=== PATIENT | male | born 1940 | race Caucasian/White ===

== ENCOUNTER 2019-06-09 11:25 | Inpatient (IN) ==
[2019-06-09 12:49] LABS: Basophils # (auto) 0.02 K/uL (0-0.2); Basophils % (auto) 0.2 %; Eosinophils # (auto) 0.18 K/uL (0-0.5); Eosinophils % (auto) 2.2 %; Hematocrit (blood only) 31.9 % (42-52); Hemoglobin 11.1 g/dL (14.0-18.0); Immature Granulocytes # (auto) 0.02 K/uL (0.00-0.02); Immature Granulocytes % (auto) 0.2 %; Lymphocytes # (auto) 1.52 K/uL (1.2-3.4); Lymphocytes % (auto) 18.3 %; Mean Corpuscular Hemoglobin 30.4 pg (25-34); Mean Corpuscular Hgb Conc 34.8 g/dL (32-36); Mean Corpuscular Volume 87.4 fL (80-100); Mean Platelet Volume 8.5 fL (7.4-10.4); Monocytes # (auto) 0.53 K/uL (0.11-0.59); Monocytes % (auto) 6.4 %; Neutrophils # (auto) 6.03 K/uL (1.4-6.5); Neutrophils % (auto) 72.7 %; Platelet Count 174 K/uL (130-400); RDW Coefficient of Variation 13.1 % (11.5-14.5); RDW Standard Deviation 41.9 fL (36.4-46.3); Red Blood Count 3.65 M/uL (4.7-6.1)
[2019-06-09 13:00] LABS: Partial Thromboplastin Ratio 0.9; Partial Thromboplastin Time 23.9 Seconds (21.0-31.0); Prothrombin Time 10.3 Seconds (9.0-12.0)
[2019-06-09 13:05] LABS: Albumin Level 3.5 gm/dl (3.4-5.0); BUN Creatinine Ratio 30.9 (10-20); Calcium 9.1 mg/dl (8.5-10.1); Est GFR (African American) 69.8; Est GFR (Non-African American) 60.2; Potassium 3.9 mmol/L (3.5-5.1)
[2019-06-09 13:07] LABS: Albumin Globulin Ratio 1.1 (0.9-2); Bilirubin,Total 0.4 mg/dl (0.2-1); Globulin 3.2 gm/dl (2.5-4.0); Total Protein 6.7 gm/dl (6.4-8.2)
[2019-06-09] MEDS ORDERED: FAMOTIDINE 20MG/5ML IV PUSH IV STA (13:55)
[2019-06-09] MEDS ORDERED: PANTOprazole 80 MG in DEXTROSE 5% 100 ML IV ONE (14:15)
[2019-06-09] MEDS: PANTOprazole 40 MG in DEXTROSE 5% 100 ML IV SCH ×2 (15:01→19:17)
--- NOTE | 2019-06-09 16:17 | History & Physical Report ---
Date of Service June 09, 2019 Assessment & Plan (1) Upper gastrointestinal bleed: Admit to PCU on telemetry. Vital signs every 4 hours CBC every 6 hours, monitor H&H Plan transfusion with PRBC if Hgb below 8 or symptomatic Consult GI N.p.o. Gentle IV fluid hydration with NSS +20 of potassium DVT prophylaxis SCDs and teds Full code Present on Admission?: Yes (2) CAD (coronary artery disease): Continue home medicine atenolol 25 mg p.o. every morning, atorvastatin 40 mg p.o. every morning, hydrochlorothiazide 25 mg p.o. every morning, lisinopril 20 mg p.o. every morning, potassium chloride 10 mEq p.o. every morning daily. Hold aspirin 81 mg p.o. daily since patient has GI bleed and fecal occult blood positive. Present on Admission?: Yes (3) HTN (hypertension): Continue home medicine as the above Present on Admission?: Yes (4) Anemia: H&H stable at this point. Continue monitoring every 6 hours. Plan transfusion if hemoglobin less than 8 or patient is symptomatic. Present on Admission?: Yes (5) Back pain: Continue Tylenol arthritis as needed Present on Admission?: Yes (6) Hx of heart bypass surgery: As discussed above Present on Admission?: Yes (7) Hx of heart artery stent: As discussed above, continue home medicine Present on Admission?: Yes (8) Melanoma: Patient advised to have periodic whole body examination by department sales manager at least once a year, to prevent reoccurrence. Present on Admission?: Yes History of Present Illness Chief Complaint: Melena Primary Care Provider: NO PCP Decision was made to admit patient Salvador patient is a 78 years old male with past medical history of back pain, upper GI bleed, hypertension, coronary artery disease, melanoma, s/p cholecystectomy, s/p 1 heart stent placement, s/p heart bypass surgery, who presents to the emergency room with a complaint of persistent melena or dark stool for 2 consecutive mornings in the row. The patient stated that he has been having dark black stools for 2 days. He states that his stools have been more loose than normal as well. He noticed that he is on baby aspirin but denies any other blood thinner. Patient states that recently he had a lot of back pain and he was taking Aleve. Patient denies taking Pepto-Bismol. Patient denies fever, chills, chest pain, shortness of breath, abdominal pain, frequency, urgency. Patient denies syncope or near syncope. Labs are reviewed and shows WBCs of 9.08, hemoglobin 11.3, hematocrit 32.3, platelets 176, PT 10.3, INR 1, APTT 23.9, sodium 140, potassium 3.9, chloride 107, carbon dioxide 29, anion gap 4, BUN 36, creatinine 1.70, GFR 60.2, glucose 156, calcium 9.1, AST 18, ALT 40, alkaline phosphatase 114, BNP 77, total protein 6.7, albumin 3.5, globulin 3.2, TSH 2.01. Fecal occult blood positive. CT abdomen and pelvis pending. Decision was made to admit patient to PCU on telemetry for further evaluation and treatment of GI bleeding. Allergies Allergy/AdvReac Type Severity Reaction Status Date / Time morphine Allergy Unknown hallucinati Verified 06/09/19 12:26 ons pravastatin Allergy Unknown muscle Verified 06/09/19 12:26 aches & pains ezetimibe [From Zetia] Allergy Muscle Unverified 06/09/19 12:26 Aches and Pains simvastatin [From Zocor] Allergy Muscle Unverified 06/09/19 12:26 Aches and Pains Home Medications Home Medications Medication Instructions Recorded Confirmed Type acetaminophen [Tylenol Arthritis 1,300 mg PO Q12H PRN 06/09/19 06/09/19 History Pain] aspirin 81 mg PO QAM 06/09/19 06/09/19 History atenolol [Tenormin] 25 mg PO QAM 06/09/19 06/09/19 History atorvastatin [Lipitor] 40 mg PO QAM 06/09/19 06/09/19 History hydrochlorothiazide 25 mg PO QAM 06/09/19 06/09/19 History lisinopril [Zestril] 20 mg PO QAM 06/09/19 06/09/19 History potassium chloride [K-Tab] 10 meq PO QAM 06/09/19 06/09/19 History Past Med/Surg History Medical History Acute urinary retention (Acute) Biliary colic (Acute) CAD (coronary artery disease) (Chronic) HTN (hypertension) (Chronic) Melanoma (Resolved) Surgical History Hx of heart artery stent (Resolved) Hx of heart bypass surgery (Resolved) S/P cholecystectomy (Resolved) Family History Other Family history non-contributory Social History Preferred Language: Turkish Communication Ability: Effective Process Architect Required: No Beliefs That Will Affect Care: None marital status: Current Living Situation: Spouse current occupational status: retired Other Information That Helps Us Care for You: No Feels Safe at Home: Yes Safety Concerns: Feels Safe At This Time Smoking Status: Never smoker Do You Dip or Chew Tobacco: No ; Second Hand Exposure: No ; Tobacco Cessation Education Requested by Patient: No Hx Alcohol Use: No Hx Substance Use: No Review of Systems Review of Systems: All systems reviewed & are unremarkable except as noted in HPI & below Physical Exam Constitutional: WD/WN, vitals as above well developed Eyes: PERRL, conjunctivae normal, anicteric sclerae ENMT: external ear and nose normal, oropharynx normal Neck: trachea midline, no thyromegaly Respiratory: normal respiratory effort, lungs clear to auscultation Cardiovascular: RRR, no murmur, no edema Gastrointestinal (Abdomen): Percussion/Palpation: + abdomen tender and abdomen soft Rectal Exam: + heme positive stool Musculoskeletal: no cyanosis or clubbing, extremities motor strength 5/5 Skin: no rashes, warm and dry Neurologic: patellar DTR's 2+ bilat, sensation intact Psychiatric: A+Ox3, euthymic affect Lymphatic: no cervical or axillary lymphadenopathy Results & Data Vital Signs (Past 12 Hours) Vital Signs Temp Pulse Pulse Resp BP BP Pulse Ox 06/09/19 15:00 62 17 119/59 L 95 06/09/19 14:30 58 L 18 124/67 96 06/09/19 13:30 56 L 17 113/60 94 06/09/19 13:00 58 L 18 110/62 94 06/09/19 11:34 36.8 C 80 18 106/67 96 Code Status & VTE Plan Code Status Full code VTE Prophylaxis Plan VTE Prophylaxis will be ordered: Yes PG Care Time/CCT Total # of Minutes Spent Total Time Spent with Patient: Total time spent is greater than 50% in coordination of care (as documented) at patient's floor/unit and/or counseling p atient: Coding Level of Care Code 87384 Initial Inpt Care Lvl 3 Diagnoses Upper gastrointestinal bleed K92.2 CAD (coronary artery disease) I25.10 HTN (hypertension) I10 Anemia D64.9 Anemia type: unspecified type Back pain M54.9 Hx of heart bypass surgery Z95.1 Hx of heart artery stent Z95.5 Melanoma C43.9 (1) Anemia Anemia type: unspecified type Qualified Code(s): D64.9 - Anemia, unspecified
[2019-06-09] MEDS ORDERED: ONDANSETRON INJ 2 MG/ML 2 ML VIAL IV PRN (16:59)
[2019-06-09] MEDS ORDERED: MAGNESIUM HYDROXIDE SUSP 30 ML UDC PO PRN (16:59)
[2019-06-09] MEDS ORDERED: ALUMINUM/MAGNESIUM SUSP 30 ML UDC PO PRN (16:59)
[2019-06-09] MEDS ORDERED: ACETAMINOPHEN 325 MG TAB PO PRN (16:59)
[2019-06-09 17:26] LABS: Basophils # (auto) 0.03 K/uL (0-0.2); Basophils % (auto) 0.3 %; Eosinophils % (auto) 2.2 %; Hematocrit (blood only) 32.3 % (42-52); Hemoglobin 11.3 g/dL (14.0-18.0); Immature Granulocytes # (auto) 0.03 K/uL (0.00-0.02); Immature Granulocytes % (auto) 0.3 %; Lymphocytes # (auto) 2.07 K/uL (1.2-3.4); Lymphocytes % (auto) 22.8 %; Mean Corpuscular Hemoglobin 30.5 pg (25-34); Mean Corpuscular Volume 87.1 fL (80-100); Mean Platelet Volume 8.6 fL (7.4-10.4); Monocytes # (auto) 0.74 K/uL (0.11-0.59); Monocytes % (auto) 8.1 %; Neutrophils # (auto) 6.01 K/uL (1.4-6.5); Neutrophils % (auto) 66.3 %; Platelet Count 176 K/uL (130-400); RDW Coefficient of Variation 13.1 % (11.5-14.5); RDW Standard Deviation 41.8 fL (36.4-46.3); Red Blood Count 3.71 M/uL (4.7-6.1); White Blood Count 9.08 K/uL (4.8-10.8)
--- NOTE | 2019-06-09 17:37 | Emergency Department Note ---
Entered by Umu White acting as a scribe for ED Provider Note CHIEF COMPLAINT: Rectal Bleed HISTORY OF PRESENT ILLNESS: The patient is a 78 year old male who presents to the Emergency Room with complaints of persistent rectal bleeding starting 2 mornings ago. The patient states that he has been having dark black stools for 2 days. He states that his stools have been more loose than normal as well. He notes that he is on baby as pirin, but denies any other blood thinners. The patient complains of nausea and lightheadedness. The patients notes that he has been taking a lot of Aleve lately for his chronic back pain. The patient denies ever having it before and taking any Pepto Bismol. Pt denies LOC, headache, fevers, chills, diaphoresis, visual changes, neck pain, chest pain, breathing difficulties, vomiting, abdominal pain, hematochezia, urinary symptoms, numbness, weakness, lymphadenopathy, rash, or other complai nts. REVIEW OF SYSTEMS: See HPI for pertinent positives and negatives. A total of ten systems were reviewed and were otherwise negative. PMHx/PSHx: The patient has a history of urinary retention, biliary colic, CAD, HTN, melanoma, heart artery stent, CABG, and cholecystectomy. SOCIAL HISTORY: Patient lives at home with his . He is retired and has never been a smoker. PHYSICAL EXAM: GENERAL: Awake, alert, well-appearing, in no distress HENT: Normocephalic, atraumatic. Oropharynx unremarkable. EYES: PERRL. Normal conjunctiva. Sclera non-icteric. NECK: Inspection normal. Non-tender. Supple. No nuchal rigidity. FROM. No masses. RESPIRATORY: Clear to auscultation. No wheezes. No rales. Normal respiratory effort. CARDIAC: Normal rate. Normal rhythm. No murmurs. No rubs. Extremities warm and well perfused. Pulses equal. No JVD. GI: Soft, non-distended. No tenderness to palpation. No rebound or guarding. No masses. RECTAL: Dark, black stool present. Heme cult positive. MUSCULOSKELETAL: Atraumatic. Chest examination reveals no tenderness. The back is symmetrical on inspection without obvious abnormality. There is no CVA tenderness to palpation. No joint edema. LOWER EXTREMITIES: Calves are equal size bilaterally and non-tender. No edema. No discoloration. NEURO: Normal sensorium. No sensory or motor deficits noted. SKIN: No rash or jaundice noted. EMERGENCY DEPARTMENT COURSE: 1219: The patient was evaluated in room B8, and a complete history and physical examination were performed. 1256: I discussed the patient's case with Dr. Ry NOLAND Hospitalist. She will evaluate the patient for further management. 1257: I reevaluated the patient and updated him on his test results. I discussed the treatment plan with him. He verbally agrees and understands. MEDICAL DECISION MAKING: Prior records/ancillary studies reviewed. Triage Nursing notes reviewed and agree them. Additional history obtained from the family. The patient's history was concerning for possible gastrointestinal bleeding. Differential diagnosis: Etiologies such as diverticulosis, AVM, coagulopathy, colitis, inflammatory bowel disease, malignancy,Xochitl-Wan tear, esophagitis, peptic ulcer disease, variceal bleed, gastritis, epistaxis, fissure, hemorrhoids, as well as others were entertained. Physical exam: As above. ER treatment provided: IV Pepcid IV Protonix bolus and drip ordered by the ED pharmacist. On reassessment the patient felt better. Diagnostics interpreted by me: ECG: Sinus rhythm The labs revealed mild anemia on CBC. BUN elevated on chemistry panel. Imaging studies: CT scan as noted below. Chest x-ray as noted below Consultation: A consultation was placed with the hospitalist. The case was discussed and diagnostics were reviewed. The patient was evaluated in the ER for further treatment. DINING SERVER: Continuous Cardiac Monitoring: An order was placed for continuous cardiac monitoring. The monitor shows a rate of 80 with sinus rhythm. IMPRESSION: Upper GI Bleed, Anemia PLAN: Being Evaluated by a Hospitalist The scribe's documentation has been prepared under my direction and personally reviewed by me in its entirety. I confirm that the note above accurately reflects all work, treatment, procedures, and medical decision making performed by me. Impression & Plan Upper gastrointestinal bleed, Anemia Past Med/Surg History Medical History Acute urinary retention (Acute) Biliary colic (Acute) CAD (coronary artery disease) (Chronic) HTN (hypertension) (Chronic) Melanoma (Resolved) Surgical History Hx of heart artery stent (Resolved) Hx of heart bypass surgery (Resolved) S/P cholecystectomy (Resolved) Family History Other Family history non-contributory Social History Preferred Language: Cape Verdean Communication Ability: Effective Fabrication Engineer Required: No Beliefs That Will Affect Care: None marital status: Current Living Situation: Spouse current occupational status: retired Other Information That Helps Us Care for You: No Feels Safe at Home: Yes Safety Concerns: Feels Safe At This Time Smoking Status: Never smoker Do You Dip or Chew Tobacco: No ; Second Hand Exposure: No ; Tobacco Cessation Education Requested by Patient: No Hx Alcohol Use: No Hx Substance Use: No Results & Data Vital Signs Vital Signs - 24 hr 06/09/19 11:34 06/09/19 13:00 06/09/19 13:30 Temperature 36.8 C Temperature Source Oral Pulse Rate 80 Pulse Rate [Apical] 58 L 56 L Pulse Rate from SpO2 Sensor Pulse Rhythm [Apical] Regular Regular Pulse Strength [Apical] Normal Respiratory Rate 18 18 17 Respiratory Effort / Characteristics Non-Labored Non-Labored Spontaneous Non-Labored Spontaneous Respiratory Depth Normal Normal Normal Respiratory Pattern Regular Regular Blood Pressure 106/67 Blood Pressure [Left Arm] 110/62 113/60 Blood Pressure Mean 80 Blood Pressure Mean [Left Arm] 78 77 Blood Pressure Position Sitting Pulse Oximetry 96 94 94 Oxygen Delivery Method Room Air Room Air Room Air Sepsis Recent Fever Within 48 Hours No Sepsis New/Unexplained Change in Mental Status No Sepsis Action Taken by Nursing No Action Required 06/09/19 14:30 06/09/19 15:00 06/09/19 15:30 Temperature Temperature Source Pulse Rate 62 60 Pulse Rate [Apical] 58 L Pulse Rate from SpO2 Sensor 61 60 Pulse Rhythm [Apical] Regular Pulse Strength [Apical] Respiratory Rate 18 17 18 Respiratory Effort / Characteristics Non-Labored Spontaneous Respiratory Depth Normal Respiratory Pattern Regular Blood Pressure 119/59 L 110/64 Blood Pressure [Left Arm] 124/67 Blood Pressure Mean 71 74 Blood Pressure Mean [Left Arm] 86 Blood Pressure Position Pulse Oximetry 96 95 96 Oxygen Delivery Method Room Air Sepsis Recent Fever Within 48 Hours Sepsis New/Unexplained Change in Mental Status Sepsis Action Taken by Nursing 06/09/19 16:00 Temperature Temperature Source Pulse Rate 57 L Pulse Rate [Apical] Pulse Rate from SpO2 Sensor 57 L Pulse Rhythm [Apical] Pulse Strength [Apical] Respiratory Rate 18 Respiratory Effort / Characteristics Respiratory Depth Respiratory Pattern Blood Pressure 130/64 Blood Pressure [Left Arm] Blood Pressure Mean 87 Blood Pressure Mean [Left Arm] Blood Pressure Position Pulse Oximetry 97 Oxygen Delivery Method Sepsis Recent Fever Within 48 Hours Sepsis New/Unexplained Change in Mental Status Sepsis Action Taken by [facility] Medications Current Medication List: was personally reviewed by me Laboratory Data Attestation: I reviewed the patient's lab results. Result diagrams: 06/09/19 17:07 06/09/19 12:34 Lab Results 06/09/19 06/09/19 06/09/19 Range/Units 12:34 12:34 12:34 WBC 8.30 (4.8-10.8) K/uL RBC 3.65 L (4.7-6.1) M/uL Hgb 11.1 L (14.0-18.0) g/dL Hct 31.9 L (42-52) % MCV 87.4 (80-100) fL MCH 30.4 (25-34) pg MCHC 34.8 (32-36) g/dL RDW Std Deviation 41.9 (36.4-46.3) fL RDW Coeff of Don 13.1 (11.5-14.5) % Plt Count 174 (130-400) K/uL MPV 8.5 (7.4-10.4) fL Immature Gran % (Auto) 0.2 % Neut % (Auto) 72.7 % Lymph % (Auto) 18.3 % [place] % (Auto) 6.4 % Eos % (Auto) 2.2 % Baso % (Auto) 0.2 % Immature Gran # (Auto) 0.02 (0.00-0.02) K/uL Neut # (Auto) 6.03 (1.4-6.5) K/uL Lymph # (Auto) 1.52 (1.2-3.4) K/uL [place] # (Auto) 0.53 (0.11-0.59) K/uL Eos # (Auto) 0.18 (0-0.5) K/uL Baso # (Auto) 0.02 (0-0.2) K/uL PT 10.3 (9.0-12.0) Seconds INR 1.0 (0.9-1.1) APTT 23.9 (21.0-31.0) Seconds PTT Ratio 0.9 Sodium 140 (136-145) mmol/L Potassium 3.9 (3.5-5.1) mmol/L Chloride 107 (98-107) mmol/L Carbon Dioxide 29 (21-32) mmol/L Anion Gap 4.0 (3-11) BUN 36 H (7-18) mg/dl Creatinine 1.17 (0.6-1.4) mg/dl Est Cr Clr Drug Dosing 52.0 ml/min Est GFR ( Amer) 69.8 Est GFR (Non-Af Amer) 60.2 BUN/Creatinine Ratio 30.9 H (10-20) Glucose 156 H (70-99) mg/dl Calcium 9.1 (8.5-10.1) mg/dl Total Bilirubin 0.4 (0.2-1) mg/dl AST 18 (15-37) U/L ALT 40 (12-78) U/L Alkaline Phosphatase 114 (45-117) U/L Total Protein 6.7 (6.4-8.2) gm/dl Albumin 3.5 (3.4-5.0) gm/dl Globulin 3.2 (2.5-4.0) gm/dl Albumin/Globulin Ratio 1.1 (0.9-2) POC Stool Occult Blood (Negative) Blood Type Antibody Screen 06/09/19 06/09/19 Range/Units 12:34 12:34 WBC (4.8-10.8) K/uL RBC (4.7-6.1) M/uL Hgb (14.0-18.0) g/dL Hct (42-52) % MCV (80-100) fL MCH (25-34) pg MCHC (32-36) g/dL RDW Std Deviation (36.4-46.3) fL RDW Coeff of Don (11.5-14.5) % Plt Count (130-400) K/uL MPV (7.4-10.4) fL Immature Gran % (Auto) % Neut % (Auto) % Lymph % (Auto) % [place] % (Auto) % Eos % (Auto) % Baso % (Auto) % Immature Gran # (Auto) (0.00-0.02) K/uL Neut # (Auto) (1.4-6.5) K/uL Lymph # (Auto) (1.2-3.4) K/uL [place] # (Auto) (0.11-0.59) K/uL Eos # (Auto) (0-0.5) K/uL Baso # (Auto) (0-0.2) K/uL PT (9.0-12.0) Seconds INR (0.9-1.1) APTT (21.0-31.0) Seconds PTT Ratio Sodium (136-145) mmol/L Potassium (3.5-5.1) mmol/L Chloride (98-107) mmol/L Carbon Dioxide (21-32) mmol/L Anion Gap (3-11) BUN (7-18) mg/dl Creatinine (0.6-1.4) mg/dl Est Cr Clr Drug Dosing ml/min Est GFR ( Amer) Est GFR (Non-Af Amer) BUN/Creatinine Ratio (10-20) Glucose (70-99) mg/dl Calcium (8.5-10.1) mg/dl Total Bilirubin (0.2-1) mg/dl AST (15-37) U/L ALT (12-78) U/L Alkaline Phosphatase (45-117) U/L Total Protein (6.4-8.2) gm/dl Albumin (3.4-5.0) gm/dl Globulin (2.5-4.0) gm/dl Albumin/Globulin Ratio (0.9-2) POC Stool Occult Blood Positive A (Negative) Blood Type O Positive Antibody Screen NEGATIVE Administered Medications Pantoprazole Sodium 40 mg/ (Dextrose) 100 mls @ 20 mls/hr IV Q5H [facility] Stop: 07/09/19 14:14 Last Admin: 06/09/19 15:01 Dose: 20 mls/hr Documented by: [id number] Discontinued Medications Famotidine (Pepcid 20mg Iv Push) 20 mg IV ONE STA Stop: 06/09/19 13:56 Last Admin: 06/09/19 14:26 Dose: 20 mg Documented by: [id number] Pantoprazole Sodium 80 mg/ (Dextrose) 120 mls @ 480 mls/hr IV NOW ONE Stop: 06/09/19 14:29 Last Infusion: 01/26/20 15:06 Dose: 0 mls/hr Documented by: [id number] Admin: 06/09/19 14:26 Dose: 480 mls/hr Documented by: [id number] ECG Data Attestation: I personally reviewed and interpreted this ECG as follows: Indication: + nausea Rate (beats per minute): 59 Rhythm: sinus bradycardia ECG Intervals/blocks: + Normal QRS ECG Lign[place]: + Normal ECG ST segments: no ST depression and no ST elevation ECG Findings: + LVH; no PACs and no PVCs Blood Pressure Blood Pressure Findings: Normal blood pressure Blood Pressure Disposition: did not require urgent referral Discharge Plan Visit Data Chief Complaint: Rectal Bleed Stated Complaint: BLOOD IN STOOL - NOT APPETITE ED Provider: Juan Pablo Turner Discharge Problem: Upper gastrointestinal bleed, Anemia Patient Disposition: Being Evaluated by Hospitalist Discharge Instructions Interventions: ED Discharge Assessment Last Done: 06/09/19 16:45 Discharge Problem: Anemia Qualifiers: Anemia type: unspecified type Qualified Code(s): D64.9 - Anemia, unspecified The scribe's documentation has been prepared under my direction and personally reviewed by me in its entirety. I confirm that the note above accurately reflects all work, treatment, procedures, and medical decision making performed by me.
[2019-06-09] MEDS: POTASSIUM CHLORIDE 10 MEQ TABCR PO SCH (17:40)
[2019-06-09 17:50] LABS: Thyroid Stimulating Hormone 2.01 uIu/ml (0.300-4.500)
[2019-06-09] MEDS: NSS + 20MEQ KCL 20 MEQ/1,000 ML BAG IV SCH (18:13)
--- NOTE | 2019-06-09 18:19 | Electrocardiogram Report ---
Test Reason : Blood Pressure : / mmHG Vent. Rate : 059 BPM Atrial Rate : 059 BPM P-R Int : 184 ms QRS Dur : 096 ms QT Int : 424 ms P-R-T Axes : 030 -05 087 degrees QTc Int : 419 ms Sinus bradycardia Minimal voltage criteria for LVH, may be normal variant Borderline ECG When compared with ECG of 12-AUG-2013 00:21, No significant change was found Confirmed by Dewayne King ([id number]) on 06/09/2019 6:19:28 PM Referred By: Confirmed By:Jeremy King
[2019-06-09] MEDS ORDERED: SODIUM CHLORIDE 0.9% 250 ML IV PRN (22:59)
[2019-06-09] MEDS ORDERED: IOVERSOL 100ml IV PRN (23:10)
[2019-06-09 23:12] LABS: Basophils # (auto) 0.03 K/uL (0-0.2); Basophils % (auto) 0.4 %; Eosinophils # (auto) 0.24 K/uL (0-0.5); Eosinophils % (auto) 3.5 %; Hematocrit (blood only) 28.4 % (42-52); Hemoglobin 9.9 g/dL (14.0-18.0); Immature Granulocytes # (auto) 0.02 K/uL (0.00-0.02); Immature Granulocytes % (auto) 0.3 %; Lymphocytes # (auto) 1.91 K/uL (1.2-3.4); Lymphocytes % (auto) 28.1 %; Mean Corpuscular Hemoglobin 30.4 pg (25-34); Mean Corpuscular Hgb Conc 34.9 g/dL (32-36); Mean Corpuscular Volume 87.1 fL (80-100); Monocytes # (auto) 0.54 K/uL (0.11-0.59); Neutrophils # (auto) 4.05 K/uL (1.4-6.5); Neutrophils % (auto) 59.7 %; Platelet Count 154 K/uL (130-400); RDW Coefficient of Variation 13.2 % (11.5-14.5); RDW Standard Deviation 41.8 fL (36.4-46.3); Red Blood Count 3.26 M/uL (4.7-6.1); White Blood Count 6.79 K/uL (4.8-10.8)
[2019-06-10] MEDS: PANTOprazole 40 MG in DEXTROSE 5% 100 ML IV SCH ×5 (00:05→21:47)
[2019-06-10 05:41] LABS: Basophils # (auto) 0.03 K/uL (0-0.2); Basophils % (auto) 0.4 %; Eosinophils % (auto) 2.8 %; Hematocrit (blood only) 28.3 % (42-52); Hemoglobin 9.8 g/dL (14.0-18.0); Immature Granulocytes # (auto) 0.01 K/uL (0.00-0.02); Immature Granulocytes % (auto) 0.1 %; Lymphocytes # (auto) 1.43 K/uL (1.2-3.4); Lymphocytes % (auto) 19.8 %; Mean Corpuscular Hemoglobin 30.4 pg (25-34); Mean Corpuscular Hgb Conc 34.6 g/dL (32-36); Mean Corpuscular Volume 87.9 fL (80-100); Mean Platelet Volume 8.9 fL (7.4-10.4); Monocytes # (auto) 0.55 K/uL (0.11-0.59); Monocytes % (auto) 7.6 %; Neutrophils % (auto) 69.3 %; Platelet Count 152 K/uL (130-400); RDW Coefficient of Variation 13.1 % (11.5-14.5); RDW Standard Deviation 42.3 fL (36.4-46.3); Red Blood Count 3.22 M/uL (4.7-6.1); White Blood Count 7.22 K/uL (4.8-10.8)
[2019-06-10] MEDS: NSS + 20MEQ KCL 20 MEQ/1,000 ML BAG IV SCH ×2 (05:48→17:55)
[2019-06-10 06:04] LABS: Estimated Average Glucose 151 mg/dl; Hemoglobin A1C 6.9 % (4.5-5.6)
[2019-06-10 06:11] LABS: BUN Creatinine Ratio 25.5 (10-20); Calcium 8.5 mg/dl (8.5-10.1); Creatinine Clr Calc Pharmacy 57.9 ml/min; Est GFR (African American) 79.5; Est GFR (Non-African American) 68.6; Potassium 3.9 mmol/L (3.5-5.1)
[2019-06-10 06:14] LABS: Albumin Globulin Ratio 1.1 (0.9-2); Bilirubin,Total 0.6 mg/dl (0.2-1); Globulin 2.8 gm/dl (2.5-4.0); Total Protein 5.8 gm/dl (6.4-8.2)
--- NOTE | 2019-06-10 07:49 | CT Scan Report ---
CT abdomen pelvis wo/w con HISTORY: melena TECHNIQUE: Multiaxial CT images of the abdomen and pelvis performed both before and after the intrave nous administration of contrast. COMPARISON STUDY: None. FINDINGS: The lung bases are clear. No pneumoperitoneum. No pneumatosis. Bilateral L5 spondylolysis. Poststernotomy changes. The liver, spleen, adrenal glands, and pancreas are unremarkable. Bilateral r enal hypodense lesions which likely represent cysts. Punctate stones within the lower pole the left k idney. No ureteral stones. No hydronephrosis. Calcified plaque within the normal caliber abdominal ao rta. No retroperitoneal lymphadenopathy. The bladder is mildly distended. The prostate gland is marke dly enlarged measuring 7.8 cm in diameter. Stents of colonic diverticulosis. Suspect minimal inflamma tory change at the descending colon best seen on image 247. Findings favor a developing acute diverti culitis. No perforation or abscess. No evidence for bowel obstruction. Normal appendix. The gallbladd er is surgically absent. IMPRESSION: 1. Minimal inflammatory change at the descending colon likely representing developing acute diverticu litis. No perforation or abscess. 2. Left-sided nephrolithiasis. No ureteral stones. No hydronephrosis. 3. Additional findings as described above. 4. This report was called/faxed to the referring physician following dictation. ACT 112: Negative or not required by law. Electronically signed by: Storm Perez M.D. 06/10/2019 7:47 AM
[2019-06-10] MEDS: lisinopriL 20 MG TAB PO SCH (08:08)
[2019-06-10] MEDS: POTASSIUM CHLORIDE 10 MEQ TABCR PO SCH (08:08)
[2019-06-10] MEDS: ATENOLOL 25 MG TABLET PO SCH (08:09)
[2019-06-10] MEDS: hydroCHLOROthiazide 25 MG TAB PO SCH (08:09)
[2019-06-10] MEDS: ATORVASTATIN 40 MG TAB PO SCH (08:09)
--- NOTE | 2019-06-10 09:05 | Gastrointestinal Consultation ---
Date of Consultation June 10, 2019 Assessment & Plan (1) Melena: EGD today by Dr. Sina Arellano. Further recommendations to follow EGD. Present on Admission?: Yes (2) Abnormal CT of the abdomen: Though CT suggests an early, developing diverticulitis, he does not have clinic symptoms of diverticulitis (no pain, fever or leukocytosis). The CT was completed w/o oral contrast, thus may not have been the very best evaluation of the bowel. He may have a diverticular bleed, as he says that there may have been some red blood, though he is not sure and the melena that he reports is more likely a sign of an UGI bleed. 1. Will watch for signs of diverticulitis. 2. Should undergo OP colonoscopy to verify no abnormalities (no colon cancer) in this area. Present on Admission?: Yes Supervising Physician Co-Signing Physician Notes I saw and evaluated the patient. He presents with anemia and history of melena for several days. We are planning for upper endoscopy today for further evaluation. Of note the patient is never had an upper endoscopy nor colonoscopy performed. Physical examination No obvious distress, pleasant appearing male Regular rhythm with a systolic ejection murmur Abdomen: soft without tenderness Impression: Patient presents with anemia and melena likely related to an upper gastrointestinal source. Given the history of NSAID use I would wonder about peptic ulcer disease. We are planning for upper endoscopy today for further evaluation. We have discussed the risks to include bleeding, infection, perforation and need for follow-up studies. History of Present Illness Reason for Consultation: Melena Requesting Physician: Dr. Childers Attending Physician: Ami Childers MD History of Present Illness Mr. Michael Pulido is a 78 yr old male [facility] with a hx of CAD post distant CABG and stenting on ASA 81mg daily (no anticoagulants), HTN, Melena, Arthritis for which he has been taking Aleve BID for months and ibuprofen prior to that. He presented to the ED yesterday for melena reporting that he passed one large loose black BM on 06/08 and 03/09. On arrival, Hb 11, today 9.8. He denies any abdominal pain, nausea/vomiting. He had some lightheadedness but no palpitations, CP or SOB. He has not passed a BM since prior to arrival. No prior endoscopy. He does fecal occults every few years in gurpreet of screening colonoscopy. Allergies Allergy/AdvReac Type Severity Reaction Status Date / Time morphine Allergy Unknown hallucinati Verified 06/10/19 09:09 ons pravastatin Allergy Unknown muscle Verified 06/10/19 09:09 aches & pains ezetimibe [From Zetia] Allergy Muscle Unverified 06/10/19 09:09 Aches and Pains simvastatin [From Zocor] Allergy Muscle Unverified 06/10/19 09:09 Aches and Pains Home Medications Home Medications Medication Instructions Recorded Confirmed Type acetaminophen [Tylenol Arthritis 1,300 mg PO Q12H PRN 06/09/19 06/09/19 History Pain] aspirin 81 mg PO QAM 06/09/19 06/09/19 History atenolol [Tenormin] 25 mg PO QAM 06/09/19 06/09/19 History atorvastatin [Lipitor] 40 mg PO QAM 06/09/19 06/09/19 History hydrochlorothiazide 25 mg PO QAM 06/09/19 06/09/19 History lisinopril [Zestril] 20 mg PO QAM 06/09/19 06/09/19 History potassium chloride [K-Tab] 10 meq PO QAM 06/09/19 06/09/19 History Patient History Medical History Acute urinary retention (Acute) Biliary colic (Acute) CAD (coronary artery disease) (Chronic) HTN (hypertension) (Chronic) Melanoma (Resolved) Surgical History Hx of heart artery stent (Resolved) Hx of heart bypass surgery (Resolved) S/P cholecystectomy (Resolved) Family History Other Family history non-contributory Social History Preferred Language: Colombian Communication Ability: Effective Wet End Tester Required: No Beliefs That Will Affect Care: None marital status: Current Living Situation: Spouse current occupational status: retired Other Information That Helps Us Care for You: No Feels Safe at Home: Yes Safety Concerns: Feels Safe At This Time Smoking Status: Never smoker Do You Dip or Chew Tobacco: No ; Second Hand Exposure: No ; Tobacco Cessation Education Requested by Patient: No Hx Alcohol Use: No Hx Substance Use: No Review of Systems Review of Systems: ROS: Gen: + briefly lightheaded on ambulation yesterday; otherwise denies weakness, fevers, weight loss Eyes: No eye redness, or pain, no recent vision changes Resp: No SOB, no cough Cardio: No palpitations/irregular beats, no chest pain GI: See HPI : Denies pain on urination Skin: No jaundice, itching or new rashes Physical Exam Constitutional: WD/WN, vitals as above Eyes: PERRL, conjunctivae normal, anicteric sclerae ENMT: external ear and nose normal, oropharynx normal Neck: trachea midline, no thyromegaly Respiratory: normal respiratory effort, lungs clear to auscultation Cardiovascular: RRR, no murmur, no edema Gastrointestinal (Abdomen): normal bowel sounds, soft, nontender, no hepatosplenomegaly Musculoskeletal: no cyanosis or clubbing, extremities motor strength 5/5 Skin: no rashes, warm and dry Neurologic: PERRL, EOMI, accommodation nl, no face palsy, no dysarthria Psychiatric: A+Ox3, euthymic affect Lymphatic: no cervical or axillary lymphadenopathy Results & Data Vital Signs (Past 12 Hours) Vital Signs Temp Pulse Pulse Resp BP BP Pulse Ox 06/10/19 06:58 37.1 C 72 18 120/64 95 06/09/19 23:27 36.8 C 69 18 128/55 L 94 06/09/19 23:21 58 L Laboratory Results Hb 11->9.8, INR 1, BUN 36->27. Diagnostic Findings CT abd/pelvis 06/09/19 with IV, no oral contrast: 1. Minimal inflammatory change at the descending colon likely representing developing acute diverticulitis. No perforation or abscess. 2. Left-sided nephrolithiasis. No ureteral stones. No hydronephrosis. 3. Additional findings as described above. 4. This report was called/faxed to the referring physician following dictation. Medications Administered Protonix Drip
--- NOTE | 2019-06-10 09:30 | Anesthesiology Consultation ---
Date of Service June 10, 2019 Assessment & Plan (1) Encounter for pre-operative examination: Chart Review Chart Review: Acceptable Risk for Surgery and Patient NOT seen in Pre Admission Testing Consults Requested none History Surgery Operation Date: 06/10/19 16:30 Proposed Procedures p Esophagogastroduodenoscopy Dr Adan Arellano Height/Weight Height: 5 ft 8 in Weight: 75.7 kg Allergies Allergy/AdvReac Type Severity Reaction Status Date / Time morphine Allergy Unknown hallucinati Verified 06/10/19 09:09 ons pravastatin Allergy Unknown muscle Verified 06/10/19 09:09 aches & pains ezetimibe [From Zetia] Allergy Muscle Unverified 06/10/19 09:09 Aches and Pains simvastatin [From Zocor] Allergy Muscle Unverified 06/10/19 09:09 Aches and Pains Medications Home Medications Medication Instructions Recorded Confirmed Last Taken acetaminophen [Tylenol Arthritis 1,300 mg PO Q12H PRN 06/09/19 06/09/19 06/08/19 Pain] aspirin 81 mg PO QAM 06/09/19 06/09/19 06/09/19 atenolol [Tenormin] 25 mg PO QAM 06/09/19 06/09/19 06/09/19 atorvastatin [Lipitor] 40 mg PO QAM 06/09/19 06/09/19 06/09/19 hydrochlorothiazide 25 mg PO QAM 06/09/19 06/09/19 06/09/19 lisinopril [Zestril] 20 mg PO QAM 06/09/19 06/09/19 06/09/19 potassium chloride [K-Tab] 10 meq PO QA 06/09/19 06/09/19 06/09/19 Active Medications Generic Name Dose Route Start Last Admin Trade Name Freq PRN Reason Stop Dose Admin Atenolol 25 mg 06/10/19 09:00 06/10/19 08:09 Tenormin PO 07/10/19 08:59 25 mg QAM MICHEAL Administration Atorvastatin Calcium 40 mg 06/10/19 09:00 06/10/19 08:09 Lipitor PO 07/10/19 08:59 40 mg QAM MICHEAL Administration Hydrochlorothiazide 25 mg 06/10/19 09:00 06/10/19 08:09 Hctz PO 07/10/19 08:59 25 mg QAM MICHEAL Administration Pantoprazole Sodium 40 mg/ 100 mls @ 20 mls/hr 06/09/19 14:15 06/10/19 05:17 Dextrose IV 07/09/19 14:14 20 mls/hr Q5H MICHEAL Administration Potassium Chloride/Sodium Chloride 20 meq in 1,000 mls @ 80 mls/hr 06/09/19 17:30 06/10/19 05:48 Normal Saline W/20 Meq Kcl IV 07/09/19 17:29 80 mls/hr .[id number] MICHEAL Administration Ioversol 92 ml 06/09/19 23:10 06/09/19 23:10 Optiray 320 100ml IV 06/13/19 23:09 92 ml ONCE PRN Administration Interaction Checking Lisinopril 20 mg 06/10/19 09:00 06/10/19 08:08 Zestril PO 07/10/19 08:59 20 mg QAM MICHEAL Administration Potassium Chloride 10 meq 06/09/19 16:59 06/10/19 08:08 Klor-Con M10 PO 07/09/19 16:58 10 meq QAM MICHEAL Administration NPO Date Last Intake of Fluids: 06/09/19 Time Last Intake of Fluids: 09:00 Date Last Intake of Solids: 06/08/19 Time Last Intake of Solids: 18:00 Past Medical History Medical History Acute urinary retention (Acute) Biliary colic (Acute) CAD (coronary artery disease) (Chronic) HTN (hypertension) (Chronic) Melanoma (Resolved) Past Family History Family History Other Family history non-contributory Past Surgical History Surgical History Hx of heart artery stent (Resolved) Hx of heart bypass surgery (Resolved) S/P cholecystectomy (Resolved) Social History Smoking Status: Never smoker Do You Dip or Chew Tobacco: No Hx Alcohol Use: No Hx Substance Use: No substance use type: does not use Physical Exam Vital Signs Last Vital Signs Temp 36.6 C 06/10/19 09:13 Pulse 61 06/10/19 09:13 Resp 16 06/10/19 09:13 BP 107/61 06/10/19 09:13 Pulse Ox 94 06/10/19 09:13 Testing Laboratory Results 06/10/19 05:21 06/10/19 05:21 PT 10.3 Seconds (9.0-12.0) 06/09/19 12:34 INR 1.0 (0.9-1.1) 06/09/19 12:34 APTT 23.9 Seconds (21.0-31.0) 06/09/19 12:34 Hemoglobin A1c 6.9 % (4.5-5.6) H 06/10/19 05:21 Blood Type O Positive 06/09/19 12:34 Antibody Screen NEGATIVE 06/09/19 12:34 06/10/19 02:40 POC Glucose 136 H
[2019-06-10] MEDS ORDERED: ePHEDrine sulfate 50 MG/ML AMP IV PRN (09:32)
[2019-06-10] MEDS ORDERED: ATROPINE SULFATE 0.1 MG/ML 10ML SYR IV PRN (09:32)
[2019-06-10] MEDS ORDERED: LIDOCAINE HCL 2% 2 ML VIAL/AMP(20MG/ML) INFIL ONE ×2 (09:33)
[2019-06-10] MEDS ORDERED: PROPOFOL IV EMULSION 10 MG/ML 20 ML VIAL IV ONE (09:33)
--- NOTE | 2019-06-10 09:56 | GI REPORT ---
Patient Name: Michael Pulido Procedure Date: 06/10/2019 9:35 AM Date of : 1940 Admit Type: Inpatient Age: 78 Gender: Male Attending MD: Sina Arellano DO Procedure: Upper GI endoscopy Providers: Sina Arellano DO Referring MD: Mindy Zhang MD, Ami Childers Md Indications: Melena Medicines: Monitored Anesthesia Care Complications: No immediate complications. Estimated blood loss: Minimal. Estimated Blood Loss: Estimated blood loss was minimal. Procedure: Pre-Anesthesia Assessment: - Prior to the procedure, a History and Physical was performed, and patient medications, allergies and sensitivities were reviewed. The patient's tolerance of previous anesthesia was reviewed. - The risks and benefits of the procedure and the sedation options and risks were discussed with the patient. All questions were answered and informed consent was obtained. - Patient identification and proposed procedure were verified prior to the procedure by the physician, the nurse and the business planning analyst. The procedure was verified in the procedure room. - Pre-procedure physical examination revealed no contraindications to sedation. - ASA Grade Assessment: III - A patient with severe systemic disease. - After reviewing the risks and benefits, the patient was deemed in satisfactory condition to undergo the procedure. - The anesthesia plan was to use monitored anesthesia care (MAC). - Immediately prior to administration of medications, the patient was re-assessed for adequacy to receive sedatives. - The heart rate, respiratory rate, oxygen saturations, blood pressure, adequacy of pulmonary ventilation, and response to care were monitored throughout the procedure. - The physical status of the patient was re-assessed after the procedure. After obtaining informed consent, the endoscope was passed under direct vision. Throughout the procedure, the patient's blood pressure, pulse, and oxygen saturations were monitored continuously. The Endoscope was introduced through the mouth, and advanced to the third part of duodenum. The upper GI endoscopy was accomplished without difficulty. The patient tolerated the procedure well. Findings: The upper third of the esophagus and middle third of the esophagus were normal. The Z-line was irregular and was found 38 cm from the incisors. A small hiatal hernia was found. The proximal extent of the gastric folds (end of tubular esophagus) was 39 cm from the incisors. The hiatal narrowing was 41 cm from the incisors. The Z-line was 38 cm from the incisors. Multiple 5 to 8 mm semi-sessile polyps with no bleeding and no stigmata of recent bleeding were found in the gastric fundus and in the gastric body. Diffuse mild inflammation characterized by congestion (edema), erythema and granularity was found in the entire examined stomach. Biopsies were taken with a cold forceps for histology. The pathology specimen was placed into Bottle A. Estimated blood loss was minimal. One non-obstructing non-bleeding cratered duodenal ulcer with a visible vessel was found in the duodenal bulb. The lesion was 8 mm in largest dimension. Area was successfully injected with 4 mL of a 1:10,000 solution of epinephrine for drug delivery. Coagulation for hemostasis using bipolar probe was successful. Estimated blood loss was minimal. The second portion of the duodenum and third portion of the duodenum were normal. Impression: - Normal upper third of esophagus and middle third of esophagus. - Z-line irregular, 38 cm from the incisors. - Small hiatal hernia. - Multiple gastric polyps. - Gastritis. Biopsied. - One non-obstructing non-bleeding duodenal ulcer with a visible vessel. NSAID induced etiology. Injected. Treated with bipolar cautery. - Normal second portion of the duodenum and third portion of the duodenum. Recommendation: - Clear liquid diet today. - Await pathology results. - Give Protonix (pantoprazole): 8 mg/hr IV by continuous infusion for 3 days. - Repeat upper endoscopy in 3 months to check healing. Sina Arellano D.O. Sina Arellano, 06/10/2019 9:56:32 AM This report has been signed electronically. Note Initiated On: 06/10/2019 9:35 AM Number of Addenda: 0 I attest to the content of the Intraoperative Record and orders documented therein, exceptions below {[id number]}
[2019-06-10] MEDS ORDERED: ONDANSETRON INJ 2 MG/ML 2 ML VIAL ONE (09:57)
[2019-06-10 11:21] LABS: Basophils # (auto) 0.03 K/uL (0-0.2); Basophils % (auto) 0.4 %; Eosinophils # (auto) 0.18 K/uL (0-0.5); Eosinophils % (auto) 2.6 %; Hematocrit (blood only) 28.7 % (42-52); Immature Granulocytes # (auto) 0.02 K/uL (0.00-0.02); Immature Granulocytes % (auto) 0.3 %; Lymphocytes # (auto) 1.47 K/uL (1.2-3.4); Lymphocytes % (auto) 21.4 %; Mean Corpuscular Hemoglobin 30.6 pg (25-34); Mean Corpuscular Hgb Conc 34.8 g/dL (32-36); Mean Corpuscular Volume 87.8 fL (80-100); Mean Platelet Volume 8.6 fL (7.4-10.4); Monocytes # (auto) 0.42 K/uL (0.11-0.59); Monocytes % (auto) 6.1 %; Neutrophils # (auto) 4.75 K/uL (1.4-6.5); Neutrophils % (auto) 69.2 %; Platelet Count 145 K/uL (130-400); RDW Coefficient of Variation 13.2 % (11.5-14.5); RDW Standard Deviation 42.6 fL (36.4-46.3); Red Blood Count 3.27 M/uL (4.7-6.1); White Blood Count 6.87 K/uL (4.8-10.8)
--- NOTE | 2019-06-10 16:29 | Anesthesiology Progress Note ---
Date of Service June 10, 2019 Anesthesia Post Procedure Vital Signs Vital Signs: Temp Pulse Pulse Resp BP BP BP 06/10/19 15:14 55 L 06/10/19 15:04 36.4 C L 58 L 18 104/65 06/10/19 11:55 66 18 120/49 L 06/10/19 11:48 55 L 18 107/64 06/10/19 11:38 51 L 18 108/62 06/10/19 11:23 54 L 18 111/64 06/10/19 10:54 36.6 C 61 19 122/69 06/10/19 10:25 54 L 18 120/64 06/10/19 10:10 59 L 18 131/63 06/10/19 09:55 36.6 C 57 L 16 129/61 06/10/19 09:13 36.6 C 61 16 107/61 06/10/19 08:00 66 06/10/19 06:58 37.1 C 72 18 120/64 06/09/19 23:27 36.8 C 69 18 128/55 L 06/09/19 23:21 58 L 06/09/19 19:26 36.5 C 56 L 18 124/70 06/09/19 16:59 36.6 C 66 18 141/77 H 06/09/19 16:30 60 23 126/71 Pulse Ox 06/10/19 15:14 06/10/19 15:04 93 06/10/19 11:55 95 06/10/19 11:48 97 06/10/19 11:38 94 06/10/19 11:23 94 06/10/19 10:54 98 06/10/19 10:25 96 06/10/19 10:10 97 06/10/19 09:55 98 06/10/19 09:13 94 06/10/19 08:00 06/10/19 06:58 95 06/09/19 23:27 94 06/09/19 23:21 06/09/19 19:26 95 06/09/19 16:59 98 06/09/19 16:30 98 Pain Intensity Bilateral Abdomen: Pain Intensity: 2 Transfer of Care Handoff Completed per policy Notes Mental Status: alert / awake / arousable Patient Amnestic to Procedure: Yes Nausea / Vomiting: adequately controlled Pain: adequately controlled Airway Patency, RR, SpO2: stable & adequate BP & HR: stable & adequate Hydration State: stable & adequate Anesthetic Complications: no major complications apparent and Pt Satisfied with anesthetic care
[2019-06-10 17:12] LABS: Basophils # (auto) 0.04 K/uL (0-0.2); Basophils % (auto) 0.5 %; Eosinophils # (auto) 0.18 K/uL (0-0.5); Eosinophils % (auto) 2.4 %; Hematocrit (blood only) 30.3 % (42-52); Hemoglobin 10.5 g/dL (14.0-18.0); Immature Granulocytes # (auto) 0.03 K/uL (0.00-0.02); Immature Granulocytes % (auto) 0.4 %; Lymphocytes # (auto) 1.85 K/uL (1.2-3.4); Lymphocytes % (auto) 24.8 %; Mean Corpuscular Hemoglobin 30.5 pg (25-34); Mean Corpuscular Hgb Conc 34.7 g/dL (32-36); Mean Corpuscular Volume 88.1 fL (80-100); Mean Platelet Volume 8.8 fL (7.4-10.4); Monocytes # (auto) 0.49 K/uL (0.11-0.59); Monocytes % (auto) 6.6 %; Neutrophils # (auto) 4.86 K/uL (1.4-6.5); Neutrophils % (auto) 65.3 %; Platelet Count 174 K/uL (130-400); RDW Coefficient of Variation 13.3 % (11.5-14.5); RDW Standard Deviation 42.5 fL (36.4-46.3); Red Blood Count 3.44 M/uL (4.7-6.1); White Blood Count 7.45 K/uL (4.8-10.8)
--- NOTE | 2019-06-10 19:28 | Hospitalist Progress Note ---
Date of Service June 10, 2019 Assessment & Plan (1) Upper gastrointestinal bleed: Continue admit to PCU on telemetry. During EGD it was found 1 nonobstructing nonbleeding duodenal ulcer with a visible vessel. NSAIDs induced etiology. This was injected and treated with bipolar cautery. GI recommended clear liquid diet. Awaiting for pathology results. Started Protonix 8 mg/h IV by continuous infusion for 3 days. They recommended to repeat endoscopy in 3 months to check healing. Vital signs every 4 hours DVT prophylaxis SCDs and teds Full code (2) CAD (coronary artery disease): Continue home medicine atenolol 25 mg p.o. every morning, atorvastatin 40 mg p.o. every morning, hydrochlorothiazide 25 mg p.o. every morning, lisinopril 20 mg p.o. every morning, potassium chloride 10 mEq p.o. every morning daily. Hold aspirin 81 mg p.o. daily since patient has GI bleed and fecal occult blood positive. (3) HTN (hypertension): Continue home medicine as the above (4) Anemia: H&H stable at this point. Continue monitoring every 6 hours. Plan transfusion if hemoglobin less than 8 or patient is symptomatic. (5) Back pain: Continue Tylenol arthritis as needed (6) Hx of heart bypass surgery: As discussed above (7) Hx of heart artery stent: As discussed above, continue home medicine (8) Melanoma: Patient advised to have periodic whole body examination by outpatient facility physical therapist at least once a year, to prevent reoccurrence. Subjective Patient seen and examined at the bedside. He is s/p EGD. He tolerated procedure well. During EGD it was found 1 nonobstructing nonbleeding duodenal ulcer with a visible vessel. NSAIDs induced etiology. This was injected and treated with bipolar cautery. GI recommended clear liquid diet. Awaiting for pathology results. Started Protonix 8 mg/h IV by continuous infusion for 3 days. They recommended to repeat endoscopy in 3 months to check healing. Patient denies fever, chills, chest pain, shortness of breath, abdominal pain, frequency, urgency. Review of Systems Review of Systems: All systems reviewed & are unremarkable except as noted in HPI & below Physical Exam Constitutional: WD/WN, vitals as above well developed Eyes: PERRL, conjunctivae normal, anicteric sclerae ENMT: external ear and nose normal, oropharynx normal Neck: trachea midline, no thyromegaly Respiratory: normal respiratory effort, lungs clear to auscultation Cardiovascular: RRR, no murmur, no edema Gastrointestinal (Abdomen): Percussion/Palpation: + abdomen tender and abdomen soft Rectal Exam: + heme positive stool Musculoskeletal: no cyanosis or clubbing, extremities motor strength 5/5 Skin: no rashes, warm and dry Neurologic: patellar DTR's 2+ bilat, sensation intact Psychiatric: A+Ox3, euthymic affect Lymphatic: no cervical or axillary lymphadenopathy Results & Data Vital Signs (Past 12 Hours) Vital Signs Temp Pulse Pulse Resp BP Pulse Ox 06/10/19 15:14 55 L 06/10/19 15:04 36.4 C L 58 L 18 104/65 93 06/10/19 11:55 66 18 120/49 L 95 06/10/19 11:48 55 L 18 107/64 97 06/10/19 11:38 51 L 18 108/62 94 06/10/19 11:23 54 L 18 111/64 94 06/10/19 10:54 36.6 C 61 19 122/69 98 06/10/19 10:25 54 L 18 120/64 96 06/10/19 10:10 59 L 18 131/63 97 06/10/19 09:55 36.6 C 57 L 16 129/61 98 06/10/19 09:13 36.6 C 61 16 107/61 94 06/10/19 08:00 66 PG Care Time/CCT Total # of Minutes Spent Total Time Spent with Patient: Total time spent is greater than 50% in coordination of care (as documented) at patient's floor/unit and/or counseling patient: Coding Level of Care Code 47720 Subseq Hosp Care Lvl 3 Diagnoses Upper gastrointestinal bleed K92.2 CAD (coronary artery disease) I25.10 HTN (hypertension) I10 Anemia D64.9 Anemia type: unspecified type Back pain M54.9 Hx of heart bypass surgery Z95.1 Hx of heart artery stent Z95.5 Melanoma C43.9 (1) Anemia Anemia type: unspecified type Qualified Code(s): D64.9 - Anemia, unspecified
[2019-06-11] MEDS: PANTOprazole 40 MG in DEXTROSE 5% 100 ML IV SCH ×5 (01:54→20:46)
[2019-06-11] MEDS: NSS + 20MEQ KCL 20 MEQ/1,000 ML BAG IV SCH ×2 (06:02→17:24)
--- NOTE | 2019-06-11 08:16 | Hospitalist Progress Note ---
Date of Service June 11, 2019 Assessment & Plan (1) Upper gastrointestinal bleed: Continue admit to PCU on telemetry. During EGD it was found 1 nonobstructing nonbleeding duodenal ulcer with a visible vessel. NSAIDs induced etiology. This was injected and treated with bipolar cautery. GI recommended clear liquid diet. Awaiting for pathology results. Continue Protonix 8 mg/h IV by continuous infusion for 3 days(#2). They recommended to repeat endoscopy in 3 months to check healing. Vital signs every 4 hours Denies melena, or hematemesis. Discussed with GI in the morning if okay to discharge patient home on PPI- Protonix 40 mg p.o. twice daily DVT prophylaxis SCDs and teds Full code (2) CAD (coronary artery disease): Continue home medicine atenolol 25 mg p.o. every morning, atorvastatin 40 mg p.o. every morning, hydrochlorothiazide 25 mg p.o. every morning, lisinopril 20 mg p.o. every morning, potassium chloride 10 mEq p.o. every morning daily. Resume aspirin 81 mg p.o. tomorrow. (3) HTN (hypertension): Continue home medicine as the above (4) Anemia: H&H stable at this point. Continue monitoring daily.. (5) Back pain: Continue Tylenol arthritis as needed (6) Hx of heart bypass surgery: As discussed above (7) Hx of heart artery stent: As discussed above, continue home medicine (8) Melanoma: Patient advised to have periodic whole body examination by director it project at least once a year, to prevent reoccurrence. Subjective Patient seen and examined at the bedside. He is s/p EGD yesterday. Patient tolerates clear liquids. During EGD it was found 1 nonobstructing nonbleeding duodenal ulcer with a visible vessel. NSAIDs induced etiology. This was injected and treated with bipolar cautery. GI recommended clear liquid diet. Awaiting for pathology results. Continue Protonix 8 mg/h IV by continuous infusion for 3 days. They recommended to repeat endoscopy in 3 months to check healing. Patient denies fever, chills, chest pain, shortness of breath, abdominal pain, frequency, urgency. Review of Systems Review of Systems: All systems reviewed & are unremarkable except as noted in HPI & below Physical Exam Constitutional: WD/WN, vitals as above well developed Eyes: PERRL, conjunctivae normal, anicteric sclerae ENMT: external ear and nose normal, oropharynx normal Neck: trachea midline, no thyromegaly Respiratory: normal respiratory effort, lungs clear to auscultation Cardiovascular: RRR, no murmur, no edema Gastrointestinal (Abdomen): Percussion/Palpation: + abdomen tender and abdomen soft Rectal Exam: + heme positive stool Musculoskeletal: no cyanosis or clubbing, extremities motor strength 5/5 Skin: no rashes, warm and dry Neurologic: patellar DTR's 2+ bilat, sensation intact Psychiatric: A+Ox3, euthymic affect Lymphatic: no cervical or axillary lymphadenopathy Results & Data Vital Signs (Past 12 Hours) Vital Signs Temp Pulse Pulse Resp BP Pulse Ox 06/11/19 07:54 36.7 C 68 18 129/67 95 06/11/19 07:25 51 L 06/11/19 04:16 36.5 C 64 20 103/57 L 93 06/11/19 00:10 62 06/10/19 23:29 36.7 C 64 18 109/60 94 PG Care Time/CCT Total # of Minutes Spent Total Time Spent with Patient: Total time spent is greater than 50% in coor dination of care (as documented) at patient's floor/unit and/or counseling patient: Coding Level of Care Code 36714 Subseq Hosp Care Lvl 3 Diagnoses Upper gastrointestinal bleed K92.2 CAD (coronary artery disease) I25.10 HTN (hypertension) I10 Anemia D64.9 Anemia type: unspecified type Back pain M54.9 Hx of heart bypass surgery Z95.1 Hx of heart artery stent Z95.5 Melanoma C43.9 (1) Anemia Anemia type: unspecified type Qualified Code(s): D64.9 - Anemia, unspecified
[2019-06-11] MEDS: ATORVASTATIN 40 MG TAB PO SCH (08:29)
[2019-06-11] MEDS: POTASSIUM CHLORIDE 10 MEQ TABCR PO SCH (08:29)
[2019-06-11] MEDS: ATENOLOL 25 MG TABLET PO SCH (08:29)
[2019-06-11] MEDS: lisinopriL 20 MG TAB PO SCH (08:30)
[2019-06-11] MEDS: hydroCHLOROthiazide 25 MG TAB PO SCH (08:30)
--- NOTE | 2019-06-11 10:00 | Gastroenterology Progress Note ---
Date of Service June 11, 2019 Assessment & Plan (1) Melena: PPI drip may be changed to po BID PPI tomorrow. May advance diet to mechanical soft. Needs OP EGD in 3 months. OP order was entered in [facility] and our office will contact pt to arrange. (2) Abnormal CT of the abdomen: Though CT suggests an early, developing diverticulitis, he does not have clinic symptoms of diverticulitis (no pain, fever or leukocytosis). The CT was completed w/o oral contrast, thus may not have been the very best evaluation of the bowel. He may have a diverticular bleed, as he says that there may have been some red blood, though he is not sure and the melena that he reports is more likely a sign of an UGI bleed. 1. Will watch for signs of diverticulitis. 2. Should undergo OP colonoscopy to verify no abnormalities (no colon cancer) in this area. Supervising Physician Co-Signing Physician Notes Attending attestation I have seen, examined this patient, and agree with the findings and above by our mid-level provider Ms.Lorella De PINEDA, with the following additions -No signs of bleeding -Doing well -PPI x 72 hrs -BID ppi afterwards Subjective Mr. Pulido is a 78 yr old male s/p EGD yesterday with findings of a nonbleeding duodenal ulcer with a visible vessel, likely NSAIDs induced, injected and treated with bipolar cautery. Hb stable at 10.5 (down for 11.1 on arrival, did not receive blood transfusions). Continued on PPI drip. No BM since prior to arrival on 06/09 (melena). Review of Systems Review of Systems: ROS: Gen: Denies weakness, fevers, weight loss Eyes: No eye redness, or pain, no recent vision changes Resp: No SOB, no cough Cardio: No palpitations/irregular beats, no chest pain GI: No abdominal pain, no nausea/vomiting : Denies pain on urination Skin: No jaundice, itching or new rashes Physical Exam Constitutional: WD/WN, vitals as above Eyes: PERRL, conjunctivae normal, anicteric sclerae ENMT: external ear and nose normal, oropharynx normal Neck: trachea midline, no thyromegaly Respiratory: normal respiratory effort, lungs clear to auscultation Cardiovascular: RRR, no murmur, no edema Gastrointestinal (Abdomen): normal bowel sounds, soft, nontender, no hepatosplenomegaly Musculoskeletal: no cyanosis or clubbing, extremities motor strength 5/5 Skin: no rashes, warm and dry Neurologic: PERRL, EOMI, accommodation nl, no face palsy, no dysarthria Psychiatric: A+Ox3, euthymic affect Lymphatic: no cervical or axillary lymphadenopathy Results & Data Vital Signs (Past 12 Hours) Vital Signs Temp Pulse Pulse Resp BP Pulse Ox 06/11/19 07:54 36.7 C 68 18 129/67 95 06/11/19 07:25 51 L 06/11/19 04:16 36.5 C 64 20 103/57 L 93 06/11/19 00:10 62 06/10/19 23:29 36.7 C 64 18 109/60 94
[2019-06-12] MEDS: PANTOprazole 40 MG in DEXTROSE 5% 100 ML IV SCH ×3 (02:08→12:41)
[2019-06-12] MEDS: NSS + 20MEQ KCL 20 MEQ/1,000 ML BAG IV SCH (05:20)
[2019-06-12] MEDS: lisinopriL 20 MG TAB PO SCH (08:24)
[2019-06-12] MEDS: hydroCHLOROthiazide 25 MG TAB PO SCH (08:24)
[2019-06-12] MEDS: ATORVASTATIN 40 MG TAB PO SCH (08:24)
[2019-06-12] MEDS: ATENOLOL 25 MG TABLET PO SCH (08:24)
[2019-06-12] MEDS: POTASSIUM CHLORIDE 10 MEQ TABCR PO SCH (08:24)
[2019-06-12 10:24] LABS: Hematocrit (blood only) 27.1 % (42-52); Hemoglobin 9.6 g/dL (14.0-18.0); Mean Corpuscular Hemoglobin 30.9 pg (25-34); Mean Corpuscular Hgb Conc 35.4 g/dL (32-36); Mean Corpuscular Volume 87.1 fL (80-100); Mean Platelet Volume 8.6 fL (7.4-10.4); Platelet Count 139 K/uL (130-400); RDW Coefficient of Variation 13.1 % (11.5-14.5); Red Blood Count 3.11 M/uL (4.7-6.1); White Blood Count 5.65 K/uL (4.8-10.8)
[2019-06-12 10:57] LABS: BUN Creatinine Ratio 11.1 (10-20); Calcium 8.5 mg/dl (8.5-10.1); Creatinine Clr Calc Pharmacy 48.3 ml/min; Est GFR (African American) 63.8; Magnesium 1.9 mg/dl (1.8-2.4); Potassium 3.8 mmol/L (3.5-5.1)
[2019-06-12] MEDS ORDERED: PANTOprazole 40 MG TAB PO STA (18:08)
--- NOTE | 2019-06-12 18:37 | Discharge Summary ---
Date of Service date of admission - June 09, 2019 date of discharge - June 12, 2019 Admission HPI Per Admitting Provider The patient is a 78 years old male with past medical history of back pain, upper GI bleed, hypertension, coronary artery disease, melanoma, s/p cholecystectomy, s/p 1 heart stent placement, s/p heart bypass surgery, who presents to the emergency room with a complaint of persistent melena/dark stool for 2 consecutive mornings in a row. He states that his stools have been more loose than normal as well. He takes a baby aspirin daily but denies any other blood thinner. Patient states that recently he had a lot of back pain and he was taking Aleve. Patient denies taking Pepto-Bismol. Patient denies fever, chills, chest pain, shortness of breath, abdominal pain, frequency, urgency. Patient denies syncope or near syncope. Labs are reviewed and shows WBCs of 9.08, hemoglobin 11.3, hematocrit 32.3, platelets 176, PT 10.3, INR 1, APTT 23.9, sodium 140, potassium 3.9, chloride 107, carbon dioxide 29, anion gap 4, BUN 36, creatinine 1.70, GFR 60.2, glucose 156, calcium 9.1, AST 18, ALT 40, alkaline phosphatase 114, BNP 77, total protein 6.7, albumin 3.5, globulin 3.2, TSH 2.01. Fecal occult blood positive. Principal Diagnosis acute blood loss anemia 2nd to upper GI bleeding from duodenal ulcer Discharge Exam Constitutional well developed and well nourished; no acute distress and no altered mental status ENMT external ear and nose normal, oropharynx normal Respiratory normal respiratory effort, lungs clear to auscultation Cardiovascular Rate/Rhythm: regular rate and regular rhythm Heart Sounds: normal S1 and normal S2; no murmur Vessels: posterior tibial pulses present and dorsalis pedis pulses present; no JVD Extremities: no edema Gastrointestinal (Abdomen) normal bowel sounds, soft, nontender, no hepatosplenomegaly Psychiatric A+Ox3, euthymic affect Discharge Data Allergies Allergy/AdvReac Type Severity Reaction Status Date / Time morphine Allergy Unknown hallucinati Verified 06/10/19 09:09 ons pravastatin Allergy Unknown muscle Verified 06/10/19 09:09 aches & pains ezetimibe [From Zetia] Allergy Muscle Unverified 06/10/19 09:09 Aches and Pains simvastatin [From Zocor] Allergy Muscle Unverified 06/10/19 09:09 Aches and Pains Consultations [facility] Gastroenterology Procedures Performed Operation Date: 06/10/19 EGD Hemostasis - Sina Arellano DO - Normal upper third of esophagus and middle third of esophagus. - Z-line irregular, 38 cm from the incisors. - Small hiatal hernia. - Multiple gastric polyps. - Gastritis. Biopsied. - One non-obstructing non-bleeding duodenal ulcer with a visible vessel. NSAID induced etiology. Injected. Treated with bipolar cautery. - Normal second portion of the duodenum and third portion of the duodenum. Ordered Studies CT abdomen pelvis - IMPRESSION: 1. Minimal inflammatory change at the descending colon likely representing developing acute diverticulitis. No perforation or abscess. 2. Left-sided nephrolithiasis. No ureteral stones. No hydronephrosis. Hospital Course (1) Duodenal ulcer: Discovered on EGD performed by Dr Arellano of [facility]. Cause of melena stools/upper GI bleeding and acute blood loss anemia. Thought to have been caused by NSAID use in setting of chronic aspirin use. Received 3-day course of protonix infusion. Then transitioned to PO protonix 40mg BID. Should remain on BID protonix and have follow-up EGD in 3 months as advised by GI. He will hold his aspirin for 1 week post-d/c then cautiously resume at that time. Discharge Hb was 9.6. (2) Acute blood loss anemia: Presenting Hb 11.1 Discharge Hb 9.6. Advised to take iron supplementation at least once daily. Should have follow-up CBC within a week of discharge for stability. (3) Upper gastrointestinal bleed: 2nd to nonobstructing nonbleeding duodenal ulcer with a visible vessel. NSAIDs likely caused the ulcer. This was injected and treated with bipolar cautery. Treated with 3 days of IV protonix infusion. Transitioned to PO protonix BID at discharge. Repeat EGD in 3 months advised. Restarted on clear liquid diet post-EGD and tolerated well. Advanced without difficulty. (4) CAD (coronary artery disease): Continue home medicine atenolol 25 mg p.o. every morning, atorvastatin 40 mg p.o. every morning, hydrochlorothiazide 25 mg p.o. every morning, lisinopril 20 mg p.o. every morning, potassium chloride 10 mEq p.o. every morning daily. Resume aspirin 81 mg p.o. daily in 1 week post-discharge. (5) HTN (hypertension): Continue home medications as above. Controlled while hospitalized. (6) Back pain: Continue Tylenol arthritis as needed Chronic issue (7) Hx of heart bypass surgery: (8) Hx of heart artery stent: Continue all cardiac meds except for aspirin. On hold for 1 week then can resume aspirin if CBC is stable and he is feeling well. (9) Melanoma: history of Total Time Total Time Spent Total Time Spent (In Minutes): 35 Total Time Includes: Examination of the Patient, Discharge Planning, Medication Reconciliation and Communication With Other Providers Discharge Plan Discharge Items Patient Disposition: Home - Self-Care Reason For Visit: Blood in stool Discharge Diagnosis: Upper GI (gastrointestinal bleeding) from duodenal ulcer Activity: As commented below Activity Comment: gradually increase activities as tolerated over next 2-3 days Non-emergency contact: Primary Care Provider and Director Of Special Education Call non-emergency contact if: you have any medication questions, your symptoms worsen, your pain is not controlled, your pain is worsening, your pain is unusual for you and your pain is concerning for you Follow-up/Referrals: Sina Arellano [Physician] - (see Dr Arellano in 3 months for repeat upper endoscopy ("EGD")) PCPELIEL [Primary Care Provider] - (see the [facility], [place], within 1 week; we will assist in obtaining a follow-up appointment for you ) Diet: Carb Consistent or DM2 and Heart Healthy Addtl Attending Provider Instructions: You were treated for blood in your stool which was ultimately found to be from upper GI bleeding from a duodenal ulcer. The duodenum is the first part of your small intestine - just after the stomach. The ulcer was treated with 3 days of IV protonix (acid owner professional engineer). Your discharge hemoglobin (red cell level/blood count) level was 9.6. Normal for most males is 13 and up. You may see some old blood (black material) in your stool for another 2-3 days. Do not be alarmed by this. The black material will ultimately resolve. Recommendations - 1. Take pantoprazole 40mg twice daily starting tomorrow. Dr Arellano from [facility] will tell you when to either cut the dose back or stop it. Keep on twice daily until you have your repeat EGD in 3 months. This is your acid owner professional engineer. 2. STOP your aspirin for 1 week. May resume on June 20. 3. DO NOT TAKE hviq-vho-rwxhqos motrin, ibuprofen, naprosyn, alleve, goodie powders, etc. 4. It is OK to take zavj-coc-alpznpj tylenol for aches/pains. 5. Avoid fried foods, spicy foods, and alcohol for 7-10 days. 6. Take krcw-oek-fphifqd iron (ferrous sulfate) 325mg once daily for 3 months. The iron may make you constipated. It can also make your stools dark green or dark brown but not black like the blood you had seen. 7. Please speak to the [facility] clinic about your new-onset Type 2 diabetes. Your hemoglobin a1c was 6.9% during this admission. You are a full-blown diabetic at this time. Follow-up -- see separate section Return to [facility] if -- * you have dizziness or lightheadedness * you have chest pains or shortness of breath * you see tarry, black stools again in the next few weeks * you see bright red blood in your stools * you have abdominal pains * any other concerns Pending Studies at Discharge: No Stand-Alone Forms: My [facility], Smoking Cessation Medications and DC Order Prescriptions: New pantoprazole [Protonix] 40 mg tablet,delayed release (DR/EC) 40 mg PO BID Qty: 60 RF: 3 ferrous sulfate 325 mg (65 mg iron) tablet 325 mg PO DAILY Qty: 90 RF: 0 Continued atorvastatin [Lipitor] 80 mg Tablet 40 mg PO QAM RF: 0 lisinopril [Zestril] 20 mg Tablet 20 mg PO QAM RF: 0 atenolol [Tenormin] 25 mg Tablet 25 mg PO QAM RF: 0 acetaminophen [Tylenol Arthritis Pain] 650 mg Tablet Extended Release 1,300 mg PO Q12H PRN (Reason: Pain) RF: 0 hydrochlorothiazide 25 mg Tablet 25 mg PO QAM RF: 0 potassium chloride [K-Tab] 20 mEq Tablet Extended Release 10 meq PO QAM RF: 0 Discontinued aspirin 81 mg Tablet,Delayed Release (Dr/Ec) 81 mg PO QAM RF: 0 Discharge Orders: Discharge Order (Routine); Ordered 06/12/19 Ordered By: Miguel Salas/Other Patient Handouts: Diabetes Healthy Meals, Diabetes Meal Planning, A1C Admission Data Admit Date/Time: 06/09/19 16:16 Attending Provider: Miguel Haywood Admit Provider: Ami Childers Primary Care Provider: PCP,NO Other Providers: Ami Childers ; Patrice Herat Other Interventions: Discharge Summary Assessment (RN) Last Done: 06/12/19 18:25 DC Date/Time DO NOT enter until pt leaves facility: 06/12/19 18:54 Coding Level of Care Code D/C Day Management >30 mins Diagnoses Duodenal ulcer K26.9 Acute blood loss anemia D62 Upper gastrointestinal bleed K92.2 CAD (coronary artery disease) I25.10 HTN (hypertension) I10 Back pain M54.9 Hx of heart bypass surgery Z95.1 Hx of heart artery stent Z95.5 Melanoma C43.9
== END 2019-06-12 18:54 | disposition home or self-care (01) | DRG 378 ==
LOC: ED 11:25 → SUATTDRO 16:16 → 2S 16:16